=== PATIENT | male | born 1975 | race Two or more races ===

== ENCOUNTER 2016-07-19 02:28 | Emergency (ER) | payer SELFPAY ==
[~2016-07-19] VITALS: Ht 170.2 cm; Wt 59.0 kg
[2016-07-19] MEDS ORDERED: ASPIRIN EC81 MG ORAL (02:33)
[2016-07-19] MEDS ORDERED: GABAPENTIN600 MG ORAL (02:33)
[2016-07-19] MEDS ORDERED: ZOCOR20 MG ORAL (02:33)
[2016-07-19] MEDS ORDERED: METFORMIN HCL1000 M1 ORAL (02:34)
[2016-07-19] MEDS ORDERED: LANTUS SOL100 UNIT/1 SUBQ (02:34)
[2016-07-19] MEDS ORDERED: HUMALOG KW200 UNIT/1 SQ (02:34)
[2016-07-19 03:08] LABS: BASOPHILS % (AUTO) 0.6 % (0.0-2.0); EOSINOPHILS % (AUTO) 2.2 % (0.0-3.0); LYMPHOCYTES % (AUTO) 15.8 % (20.0-45.0); MEAN CORPUSCULAR HEMOGLOBIN 31.9 PG (27.0-31.0); MEAN CORPUSCULAR HGB CONC 34.3 G/DL (32.0-36.0); MEAN CORPUSCULAR VOLUME 93 FL (80-99); MEAN PLATELET VOLUME 9.2 FL (6.5-10.1); MONOCYTES % (AUTO) 5.8 % (1.0-10.0); NEUTROPHILS % (AUTO) 75.6 % (45.0-75.0); PLATELET COUNT 232 K/UL (150-450); RED BLOOD COUNT 4.81 M/UL (4.70-6.10); RED CELL DISTRIBUTION WIDTH 11.8 % (11.6-14.8); WHITE BLOOD COUNT 15.3 K/UL (4.8-10.8)
[2016-07-19 03:22] LABS: ANION GAP 13 (5-15); CALCIUM 9.2 mg/dL (8.6-10.2); CARBON DIOXIDE 27 mEQ/L (20-30); CHLORIDE 100 mEQ/L (98-107); CREATININE 0.9 mg/dL (0.7-1.2); GLOMERULAR FILTRATION RATE > 60 mL/min (>60); HEMOLYSIS 5; POTASSIUM 3.4 mEQ/L (3.4-4.9); SODIUM 140 mEQ/L (135-145)
[2016-07-19 03:25] LABS: APPEARANCE,URINE CLEAR; KETONES,URINE NEGATIVE (NEGATIVE); LEUKOCYTE ESTERASE ,URINE 1+ (NEGATIVE); NITRITE,URINE NEGATIVE (NEGATIVE); PH,URINE 5 (4.5-8.0); PROTEIN,URINE NEGATIVE (NEGATIVE); UROBILINOGEN,URINE NORMAL MG/DL (0.0-1.0)
[2016-07-19 03:51] LABS: BACTERIA,URINE OCCASIONAL /HPF; MUCUS,URINE FEW /LPF (NONE/OCC); RBC,URINE 0-2 /HPF (0 - 0); SQUAMOUS EPITHELIAL CELL,UR OCCASIONAL /LPF (NONE/OCC)
[2016-07-19 03:53] VITALS: BP 147/81
--- NOTE | 2016-07-19 04:28 | Emergency Room Report ---
History of Present Illness General Chief Complaint: Altered Mental Status Source: Patient, Family Member, EMS Present Illness HPI Is a 40-year-old male with a history insulin-dependent diabetes. He take metformin and Lantus and insulin. He presents with altered mental status with low blood sugar. His called 911 because he was unresponsive and short of breath and diaphoretic. EMS said that his blood sugars 30. They gave him an amp of a 10 and a razor to 100. His mental status improved 2 GCS of 14. He still confused. When his nephew got here, he said that patient a small amount and went to sleep. This never happened to him before. Patient has no other complaint. Allergies: Coded Allergies: No Known Allergies (Unverified , 07/19/16) Patient History Past Medical History: see triage record, old chart reviewed, DM Past Surgical History: other Pertinent Family History: none Social History: Reports: alcohol use Immunizations: other Reviewed Nursing Documentation: PMH: Agreed, PSxH: Agreed Nursing Documentation-PMH Past Medical History: No History, Except For Hx Diabetes: Yes Review of Systems Eye: Denies: blurred vision, eye pain ENT: Denies: ear pain, nose congestion, throat swelling Respiratory: Denies: cough, shortness of breath Cardiovascular: Denies: chest pain, palpitations Gastrointestinal: Denies: abdominal pain, diarrhea, nausea, vomiting Musculoskeletal: Denies: back pain, joint pain Skin: Denies: rash Neurological: Denies: headache, numbness Endocrine: Denies: increased thirst, increased urine Hematologic/Lymphatic: Denies: easy bruising All Other Systems: negative except mentioned in HPI Physical Exam Vital Signs Date Time Temp Pulse Resp B/P Pulse Ox O2 Delivery O2 Flow Rate FiO2 07/19/16 02:28 98.2 94 16 139/99 98 Room Air vitals normal Sp02 EP Interpretation: reviewed, normal General Appearance: well appearing, no apparent distress, alert Head: normocephalic, atraumatic Eyes: bilateral eye EOMI, bilateral eye PERRL ENT: hearing grossly normal, normal pharynx Neck: full range of motion, supple, no meningismus Respiratory: chest non-tender, lungs clear, normal breath sounds Cardiovascular #1: regular rate, rhythm, no murmur Gastrointestinal: normal bowel sounds, non tender, no mass, no organomegaly, no bruit, non-distended Musculoskeletal: back normal, gait/station normal, normal range of motion Neurologic: alert, other - Confused, grossly normal Psychiatric: mood/affect normal Skin: warm/dry Medical Decision Making Diagnostic Impression: Primary Impression: Altered mental status Qualified Codes: R41.82 - Altered mental status, unspecified Additional Impression: Hypoglycemia ER Course Patient presents with altered mental status secondary to hypoglycemia. He was fed here and given D50. Blood sugar has been above normal. Mental status back to normal. We'll discharge him home with nephew. Last Vital Signs Date Time Temp Pulse Resp B/P Pulse Ox O2 Delivery O2 Flow Rate FiO2 07/19/16 03:53 98.2 101 17 147/81 100 Room Air Status: improved Disposition: HOME, SELF-CARE Condition: Stable Referrals: NOT CHOSEN IPA/,REFERRING (PCP) Additional Instructions: Eat regularly. Check your blood sugar regularly. Followup with your Dr. in 2- 3 days. Return if worse. BRANDO NERI M.D. Jul 19, 2016 04:28
[2016-07-19 05:05] VITALS: BP 139/79
== END 2016-07-19 05:05 | disposition home or self-care (01) ==
LOC: EDBD 02:28 → EMR 02:43
DX: R41.82 Altered mental status, unspecified (principal); E16.2 Hypoglycemia, unspecified; E11.9 Type 2 diabetes mellitus without complications; Z79.4 Long term (current) use of insulin
CPT/HCPCS: 36415; 80048; 80300; 81001; 82962; 85025; 96374; 96375; 99284; J2405